=== PATIENT | female | born 1975 ===

== ENCOUNTER 2017-11-08 05:05 | Day surgery (SDC) | payer OTHER ==
[2017-11-08] MEDS ORDERED: PERCOCET 5-3251 EACH PO (10:13)
[2017-11-08] MEDS ORDERED: COLACE100 MG PO (10:13)
== END 2017-11-08 13:40 | disposition home or self-care (01) ==
LOC: CIR.AMB 05:05
DX: K61.0 Anal abscess (principal); K60.3 Anal fistula; K62.89 Other specified diseases of anus and rectum